=== PATIENT | male | born 1960 | race Caucasian/White ===

== ENCOUNTER → 2025-05-19 09:31 | Outpatient (REF) | payer OTHER, SELFPAY ==
--- NOTE | 2025-05-19 10:55 | CARDSERVDEF ---
Echocardiogram with Definity completed after protocol screening completed. Allergies verified.
Patent IV site: _Right antecubital 22 G PC____
IV site flushed with 0.9% NaCl pre and post administration.
Diluted bolus method utilized to enhance visualization of ventricular sainz.
Total volume given: __10__ mL
Patient tolerated all procedures well without complications.
Heplock D/C ed at 1054, site clear, no redness, no edema. Pressure held, no bleeding. 2x2 applied and taped. Pt offers no complaints.
== END ==
LOC: RCS 09:31
PROVIDERS: ATTENDING PHYSICIAN Nurse Practitioner; FAMILY PHYSICIAN Family Medicine; REFERRING PHYSICIAN Internal Medicine Cardiovascular Disease
DX: I25.10 Atherosclerotic heart disease of native coronary artery without angina pectoris (principal)
CPT/HCPCS: 93017; 93350; Q9957